=== PATIENT | male | born 1990 | race Hispanic/Latino ===

== ENCOUNTER 2022-12-29 18:15 | Emergency (ER) | payer OTHER ==
[~2022-12-29] VITALS: Ht 188 cm; Wt 122.3 kg
[2022-12-29 18:16] VITALS: BP 147/93; TEMP 98.2; O2SAT 97
[2022-12-29] MEDS ORDERED: BACITRACIN OINTMENT 30GM TUBE TOP ONE (20:20)
[2022-12-29] MEDS ORDERED: CEPHALEXIN 500 MG CAP PO ONE (20:50)
[2022-12-29] MEDS ORDERED: CEPH500C PO (20:58)
== END 2022-12-29 21:34 | disposition home or self-care (01) ==
LOC: M ED 18:15
DX: S61.214A Laceration without foreign body of right ring finger without damage to nail, initial encounter (principal); W26.8XXA Contact with other sharp object(s), not elsewhere classified, initial encounter; I10 Essential (primary) hypertension; Y92.838 Other recreation area as the place of occurrence of the external cause; Y93.B9 Activity, other involving muscle strengthening exercises; Y99.9 Unspecified external cause status; Z79.899 Other long term (current) drug therapy